=== PATIENT | female | born 1960 | race Caucasian/White ===

== ENCOUNTER 2019-08-06 09:26 | Outpatient (CLI) | payer BC, MEDICAID ==
[~2019-08-06 09:26] MED LIST: NO HOME MEDS; iohexol 300mg/ml 100ml inj. ONE
== END 2019-08-06 23:59 | disposition home or self-care (01) ==
LOC: 64 CT 09:26
PROVIDERS: ATTEND Internal Medicine
DX: C50.819 Malignant neoplasm of overlapping sites of unspecified female breast (principal); R91.1 Solitary pulmonary nodule
CPT/HCPCS: 71270; Q9967